=== PATIENT | female | born 1995 ===

== ENCOUNTER 2017-07-30 16:34 | Emergency (ER) | payer MEDICAID ==
[2017-07-30 16:34] VITALS: BMI 23.2
[2017-07-30 16:37] VITALS: BP 126/84; PULSE 95; RESP 20; TEMP 97.9; O2SAT 99
--- NOTE | 2017-07-30 16:59 | C.PDOC ---
History Of Present Illness Beronica Ohara is a 22 y/o female who presents to the ER for evaluation after she slipped and fell yesterday sustaining a mild contusion to the face. Also notes that she fell from squatting to her buttocks, and is complaining of pain to the bilateral medial trapezius muscles. Patient denies loss of consciousness. She denies nausea, vomiting, severe headaches, and dizziness. - HPI Time Seen by Provider: 07/30/17 16:50 Chief Complaint (Nursing): Back Pain History Per: Patient History/Exam Limitations: no limitations Injury Occurred (Timing): Days Ago: (1) Past Medical History Reviewed: Historical Data, Nursing Documentation, Vital Signs Vital Signs: Last Vital Signs Temp 97.9 F 07/30/17 16:35 Pulse 95 H 07/30/17 16:35 Resp 20 07/30/17 16:35 BP 126/84 07/30/17 16:35 Pulse Ox 99 07/30/17 18:57 - Medical History PMH: Anemia, Depression Denies: Diabetes, Hepatitis, HIV, HTN, Seizures, Sexually Transmitted Disease Other Surgeries: control implant @ left arm Family History: States: Unknown Family Hx - Social History Hx Tobacco Use: No Hx Alcohol Use: No Hx Substance Use: No - Immunization History Hx Tetanus Toxoid Vaccination: No Hx Influenza Vaccination: No Hx Pneumococcal Vaccination: No Review Of Systems Except As Marked, All Systems Reviewed And Found Negative. Musculoskeletal: Positive for: Other (Pain to bilateral trapezius) Neurological: Positive for: Other (contusion to face). Negative for: Weakness, Numbness, Headache, Dizziness Physical Exam - Physical Exam Appears: Non-toxic, No Acute Distress Skin: Normal Color, Warm, Dry Head: Normacephalic, Other (Superficial contusion on low central brow) Eye(s): bilateral: Normal Inspection, PERRL, EOMI Oral Mucosa: Moist Neck: Normal ROM, Supple Cardiovascular: Rhythm Regular, No Murmur Respiratory: Normal Breath Sounds, No Accessory Muscle Use Gastrointestinal/Abdominal: Normal Exam, Soft, No Tenderness Back: Normal Inspection, No Vertebral Tenderness, Other (tenderness to bilateral medial trapezius) Extremity: Normal ROM, No Deformity Neurological/Psych: Oriented x3, Normal Speech, Normal Motor, Normal Sensation ED Course And Treatment O2 Sat by Pulse Oximetry: 99 (RA) Pulse Ox Interpretation: Normal Medical Decision Making Medical Decision Making: Impression: slip and fall with minor contusion to forehead and muscle strain/sprain of b/l lower trapezius. no s/s of brain/skull injury worse with hot shower this AM ice/NSAIDS educated. defer radiology with informed consent. Disposition Doctor Will See Patient In The: Office Counseled Patient/Family Regarding: Studies Performed, Diagnosis - Disposition Referrals: Eugenia Umaña DO [Doctor Osteopathy] - Disposition: HOME/ ROUTINE Disposition Time: 16:58 Condition: GOOD Additional Instructions: ice packs to b/l trapezius area 1/2 hour per hour, nothing hot. NO HOT SHOWERS Motrin/Advil/Ibuprofen 400-600 mg every 6 hours as needed for pain Discomforts should improve in about a week Return to ER or Dr. Umaña for any significant changes or worstening. Instructions: Muscle Strain (ED), Contusion in Adults (ED), Musculoskeletal Pain (ED) Forms: [facility] (Swedish), Work Excuse - Clinical Impression Clinical Impression: Trapezius muscle strain, Facial contusion - Scribe Statement The provider has reviewed the documentation as recorded by the Scribe (Estelita Lassiter) Provider Attestation: All medical record entries made by the Scribe were at my direction and personally dictated by me. I have reviewed the chart and agree that the record accurately reflects my personal performance of the history, physical exam, medical decision making, and the department course for this patient. I have also personally directed, reviewed, and agree with the discharge instructions and disposition.
== END 2017-07-30 17:11 | disposition home or self-care (01) ==
LOC: C.ER 16:34
DX: S00.83XA Contusion of other part of head, initial encounter (principal); S29.012A Strain of muscle and tendon of back wall of thorax, initial encounter; W01.0XXA Fall on same level from slipping, tripping and stumbling without subsequent striking against object, initial encounter

== ENCOUNTER 2017-10-19 08:55 | Emergency (ER) | payer MEDICAID ==
[2017-10-19 08:55] VITALS: BMI 23.2
[2017-10-19 09:12] VITALS: RESP 18; O2SAT 100
--- NOTE | 2017-10-19 09:54 | C.PDOC ---
History Of Present Illness 22-year-old female, presents to the emergency department with complaints of a cough, runny nose and sore throat, that have gradually developed over the past two days. Patient denies any nausea/vomiting, fevers, chest pain, shortness of breath, rashes, back pain, neck pain, symptoms, change in bowel habits, abdominal pain, recent travel, or any other associated symptoms. No other complaints at this time. Time Seen by Provider: 10/19/17 09:21 Chief Complaint (Nursing): Flu-like Symptoms History Per: Patient History/Exam Limitations: no limitations Onset/Duration Of Symptoms: Days (2) Current Symptoms Are (Timing): Still Present Past Medical History Reviewed: Historical Data, Nursing Documentation, Vital Signs Vital Signs: Last Vital Signs Temp 98.2 F 10/19/17 09:09 Pulse 103 H 10/19/17 09:09 Resp 18 10/19/17 09:09 BP 114/80 10/19/17 09:09 Pulse Ox 100 10/19/17 09:54 - Medical History PMH: Anemia, Depression Denies: Diabetes, Hepatitis, HIV, HTN, Seizures, Sexually Transmitted Disease Family History: States: No Known Family Hx - Social History Hx Tobacco Use: No Hx Alcohol Use: No Hx Substance Use: No - Immunization History Hx Tetanus Toxoid Vaccination: No Hx Influenza Vaccination: No Hx Pneumococcal Vaccination: No Review Of Systems Constitutional: Positive for: Fever ENT: Positive for: Nose Discharge, Throat Pain. Negative for: Ear Pain, Ear Discharge, Nose Congestion Respiratory: Positive for: Cough. Negative for: Shortness of Breath Gastrointestinal: Negative for: Nausea, Vomiting, Abdominal Pain Genitourinary: Negative for: Frequency, Hematuria, Vaginal Discharge, Vaginal Bleeding Musculoskeletal: Negative for: Neck Pain, Back Pain Skin: Negative for: Rash Neurological: Negative for: Headache, Dizziness Physical Exam - Physical Exam Appears: Well, Non-toxic, No Acute Distress, Other (intermittent cough) Skin: Normal Color, Warm, Dry, No Rash Head: Normacephalic Eye(s): bilateral: PERRL Ear(s): Bilateral: Normal Nose: Normal Oral Mucosa: Moist Lips: Normal Appearing Throat: No Erythema, No Exudate Neck: Normal ROM, Trachea Midline, Supple Cardiovascular: Rhythm Regular, No Murmur Respiratory: Normal Breath Sounds, No Accessory Muscle Use Pelvic: Cervical Motion Tenderness Extremity: No Deformity, No Swelling Neurological/Psych: Oriented x3, Normal Speech ED Course And Treatment O2 Sat by Pulse Oximetry: 100 (RA) Pulse Ox Interpretation: Normal Progress Note: Patient treated with Naproxen, Sudafed, Tamiflu and Tessalon. Disposition Counseled Patient/Family Regarding: Diagnosis, Need For Followup, Rx Given - Disposition Referrals: Eugenia Umaña DO [Doctor Oste[facility]] - Disposition: HOME/ ROUTINE Disposition Time: 10:10 Condition: STABLE Additional Instructions: FOLLOW UP WITH YOUR DOCTOR IN 1-2 DAYS DRINK PLENTY OF FLUIDS AND GET REST USE MEDICATIONS DIRECTED RETURN TO EMERGENCY ROOM IF SYMPTOMS WORSEN SEGUIMIENTO CON FONTENOT MDICO EN 1-2 LANGFORD MASOUD ABUNDANTE LQUIDO Y DESCANSE USE MEDICAMENTOS SEGN LO INDICADO REGRESE AL SKY DE EMERGENCIA SI LOS SNTOMAS EMPEORAN Prescriptions: Benzonatate [Tessalon Perles] 100 mg PO BID PRN #15 sgl PRN Reason: Cough Naproxen 375 mg PO BID PRN #20 tablet PRN Reason: pain Pseudoephedrine [Sudafed] 60 mg PO Q6 PRN #12 tab PRN Reason: Nasal Congestion Instructions: Viral Syndrome (DC) Forms: [facility] (Macedonian), Work Excuse Print Language: MICRONESIAN - Clinical Impression Clinical Impression: Influenza-like illness - Scribe Statement The provider has reviewed the documentation as recorded by the Scribe (Jaja Coronel) All medical record entries made by the Scribe were at my direction and personally dictated by me. I have reviewed the chart and agree that the record accurately reflects my personal performance of the history, physical exam, medical decision making, and the department course for this patient. I have also personally directed, reviewed, and agree with the discharge instructions and disposition.
[2017-10-19] MEDS ORDERED: Naproxen 550 mg Tab PO STA (10:02)
[2017-10-19] MEDS ORDERED: Naproxen 550 mg Tab PO ONE (10:08)
[2017-10-19 11:28] VITALS: BP 110/80; PULSE 75; TEMP 98.4
== END 2017-10-19 10:50 | disposition home or self-care (01) ==
LOC: C.ER 08:55
DX: J11.1 Influenza due to unidentified influenza virus with other respiratory manifestations (principal)

== ENCOUNTER 2018-11-25 10:27 | Emergency (ER) | payer MEDICAID ==
[2018-11-25 10:40] VITALS: O2SAT 100; BMI 27.4
[2018-11-25 11:36] LABS: BASO % 0.1 % (0.0-2.0); EOS % 0.2 % (0.0-4.0); HEMOGLOBIN 13.7 g/dL (11.0-16.0); LYMPH # 0.5 K/uL (1.0-4.3); LYMPH % 8.5 % (20.0-40.0); MEAN CORPUSCULAR HEMOGLOBIN 30.1 pg (27.0-31.0); MEAN CORPUSCULAR HGB CONC 34.2 g/dL (33.0-37.0); MEAN PLATELET VOLUME 8.7 fL (7.2-11.7); MONO # 0.1 K/uL (0.0-0.8); MONO % 2.4 % (0.0-10.0); NEUT # 5.4 K/uL (1.8-7.0); NEUT % 88.8 % (50.0-75.0); NRBC % 0.1 % (0.0-2.0); PLATELET COUNT 260 K/uL (130-400); RBC 4.54 Mil/uL (3.80-5.20); RED CELL DISTRIBUTION WIDTH 12.5 % (11.5-14.5); WHITE BLOOD COUNT 6.1 K/uL (4.8-10.8)
[2018-11-25 11:51] LABS: ALB/GLOB RATIO 1.5 (1.0-2.1); ALT/SGPT 9 U/L (9-52); AST/SGOT 27 U/L (14-36); BLOOD UREA NITROGEN 17 mg/dL (7-17); CALCIUM 9.9 mg/dl (8.6-10.4); GFR NON-AFRICAN AMERICAN > 60; LIPASE 38 U/L (23-300); SQUAMOUS EPITHIAL 2 /hpf (0-5); URINE BILIRUBIN NEGATIVE (NEGATIVE); URINE BLOOD NEGATIVE (NEGATIVE); URINE CLARITY Hazy (Clear); URINE COLOR Yellow (YELLOW); URINE GLUCOSE (UA) NORMAL (Normal); URINE LEUKOCYTE ESTERASE NEG Leu/uL (Negative); URINE PROTEIN NEGATIVE (NEGATIVE); URINE UROBILINOGEN NORMAL mg/dL (0.2-1.0)
--- NOTE | 2018-11-25 12:03 | C.PDOC ---
History Of Present Illness 23 y/o F c no PMHx p/w vomiting, diarrhea, abdominal pain since last night. Reports about 5 episodes of NBNB vomiting and 5 episodes of NB diarrhea. Denies fever, chills, chest pain, dyspnea, dysuria, recent travel, sick contacts. Time Seen by Provider: 11/25/18 11:58 Chief Complaint (Nursing): Abdominal Pain Past Medical History Vital Signs: Last Vital Signs Temp 98.5 F 11/25/18 10:39 Pulse 114 H 11/25/18 10:39 Resp 20 11/25/18 10:39 BP 124/80 11/25/18 10:39 Pulse Ox 100 11/25/18 10:39 - Medical History PMH: Anemia, Depression Denies: Diabetes, Hepatitis, HIV, HTN, Seizures, Sexually Transmitted Disease Family History: States: Unknown Family Hx - Social History Hx Tobacco Use: No Hx Alcohol Use: No Hx Substance Use: No - Immunization History Hx Tetanus Toxoid Vaccination: Yes Hx Influenza Vaccination: No Hx Pneumococcal Vaccination: No Review Of Systems Except As Marked, All Systems Reviewed And Found Negative. Constitutional: Negative for: Fever Cardiovascular: Negative for: Chest Pain Physical Exam - Physical Exam Additional Physical Exam Comments: Constitutional: No acute distress. Head: Normocephalic. Atraumatic. Eyes: PERRL. ENT: Moist mucous membranes. Neck: Supple. Cardiovascular: Tachycardic. Radial pulse 2+ bilaterally. Chest: No tenderness. Respiratory: Clear to auscultation bilaterally. GI: Soft. Nontender. Nondistended. Back: No CVA tenderness. Musculoskeletal: No tenderness or swelling of extremities. Skin: No rash. Neurologic: Alert, no focal deficit. ED Course And Treatment - Laboratory Results Result Diagrams: 11/25/18 11:25 11/25/18 11:25 Lab Results: Total Bilirubin 0.4 mg/dL (0.2-1.3) 11/25/18 11:25 AST 27 U/L (14-36) 11/25/18 11:25 ALT 9 U/L (9-52) D 11/25/18 11:25 Alkaline Phosphatase 72 U/L (38-126) 11/25/18 11:25 Total Protein 8.3 g/dL (6.3-8.3) 11/25/18 11:25 Albumin 5.0 g/dL (3.5-5.0) 11/25/18 11:25 Globulin 3.3 gm/dL (2.2-3.9) 11/25/18 11:25 Albumin/Globulin Ratio 1.5 (1.0-2.1) 11/25/18 11:25 Lipase 38 U/L (23-300) 11/25/18 11:25 Urine Color Yellow (YELLOW) 11/25/18 11:25 Urine Clarity Hazy (Clear) 11/25/18 11:25 Urine pH 6.0 (5.0-8.0) 11/25/18 11:25 Ur Specific [place] 1.027 (1.003-1.030) 11/25/18 11:25 Urine Protein Negative mg/dL (NEGATIVE) 11/25/18 11:25 Urine Glucose (UA) Normal mg/dL (Normal) 11/25/18 11:25 Urine Ketones Negative mg/dL (NEGATIVE) 11/25/18 11:25 Urine Blood Negative (NEGATIVE) 11/25/18 11:25 Urine Nitrate Negative (NEGATIVE) 11/25/18 11:25 Urine Bilirubin Negative (NEGATIVE) 11/25/18 11:25 Urine Urobilinogen Normal mg/dL (0.2-1.0) 11/25/18 11:25 Ur Leukocyte Esterase Neg [place]/uL (Negative) 11/25/18 11:25 Urine WBC (Auto) 2 /hpf (0-5) 11/25/18 11:25 Urine RBC (Auto) 3 /hpf (0-3) 11/25/18 11:25 Ur Squamous Epith Cells 2 /hpf (0-5) 11/25/18 11:25 O2 Sat by Pulse Oximetry: 100 Medical Decision Making Medical Decision Making: Patient feels better, vitals improved. DIscharge home, f/u primary care, return to ED for vomiting, lethargy, or any worsening symptoms. Disposition - Disposition Disposition: HOME/ ROUTINE Disposition Time: 13:56 Condition: GOOD Prescriptions: Ondansetron ODT [Zofran ODT] 4 mg PO Q8 #12 odt Instructions: Viral Gastroenteritis, Adult (DC) Forms: [facility] [employer] [facility] (Azeri) - Clinical Impression Clinical Impression: Vomiting, Diarrhea
[2018-11-25] MEDS ORDERED: Sodium Chloride 0.9% 1,000 ML IV STA (12:06)
[2018-11-25] MEDS ORDERED: Sodium Chloride 0.9% 1,000 ML ONE (12:26)
[2018-11-25 12:30] LABS: LYMPHOCYTE 9 % (20-40); MONOCYTE 3 % (0-10); NEUTROPHIL 88 % (50-75); PLATELET ESTIMATE NORMAL (NORMAL); TOTAL CELLS COUNTED 100
[2018-11-25 13:22] VITALS: RESP 16
[2018-11-25 14:15] VITALS: BP 99/64; PULSE 109; TEMP 98.5
== END 2018-11-25 14:51 | disposition home or self-care (01) ==
LOC: C.ER 10:27
DX: R11.10 Vomiting, unspecified (principal); R19.7 Diarrhea, unspecified
CPT/HCPCS: 80053; 81001; 81025; 83690; 85025; 96361; 96374; 99285; J2405; J7030